=== PATIENT | female | born 1990 | race Caucasian/White ===

== ENCOUNTER → 2020-06-07 | Outpatient (CLI) | payer BC ==
[~2020-06-07] MED LIST: LEVOFLOXACIN500 MG PO; MEDROL DOSEPAK4 MG PO; MOTRIN600 MG PO; PROAIR HFA0.09 MG/AC IH; ZITHROMAX Z PA250 MG PO
== END | disposition home or self-care (01) ==
LOC: US 14:12
PROVIDERS: ATTEND Nurse Practitioner Women's Health
DX: N93.9 Abnormal uterine and vaginal bleeding, unspecified (principal)

== ENCOUNTER → 2022-03-12 | Outpatient (CLI) | payer BC | END | disposition home or self-care (01) | LOC: RAD 09:34 | PROVIDERS: ATTEND Nurse Practitioner | DX: M47.816 Spondylosis without myelopathy or radiculopathy, lumbar region (principal); M25.78 Osteophyte, vertebrae ==

== ENCOUNTER → 2022-11-05 | Outpatient (CLI) | payer BC | END | disposition home or self-care (01) | LOC: RAD 13:34 | PROVIDERS: ATTEND Nurse Practitioner | DX: M54.31 Sciatica, right side (principal); M54.59 Other low back pain; M25.551 Pain in right hip ==

== ENCOUNTER 2022-12-17 08:15 | Emergency (ER) | payer BC ==
[~2022-12-17] VITALS: Ht 165.1 cm; Wt 140.6 kg
[2022-12-17] MEDS ORDERED: OZEMPIC2 MG/0.71 SQ (08:25)
[2022-12-17] MEDS ORDERED: DULOXETINE HCL60 MG PO (08:26)
[2022-12-17] MEDS ORDERED: BUSPAR5 MG PO (08:26)
[2022-12-17] MEDS ORDERED: CYCLOBENZAPRINE10 MG PO (10:27)
[2022-12-17] MEDS ORDERED: PREDNISONE50 MG PO (10:27)
[2022-12-17] MEDS ORDERED: HYDROCODONE-AC1 EAC1 PO (10:27)
== END 2022-12-17 10:35 | disposition home or self-care (01) ==
LOC: ED 08:15
DX: M54.41 Lumbago with sciatica, right side (principal); M79.604 Pain in right leg; F32.A Depression, unspecified

== ENCOUNTER → 2022-12-26 | Outpatient (CLI) | payer BC ==
[~2022-12-26] MED LIST changes: +BUSPAR5 MG PO; +CYCLOBENZAPRINE10 MG PO; +DULOXETINE HCL60 MG PO; +HYDROCODONE-AC1 EAC1 PO; +OZEMPIC2 MG/0.71 SQ; +PREDNISONE50 MG PO
== END | disposition home or self-care (01) ==
LOC: MRI 10:39
PROVIDERS: ATTEND Nurse Practitioner
DX: M51.26 Other intervertebral disc displacement, lumbar region (principal); M48.061 Spinal stenosis, lumbar region without neurogenic claudication

== ENCOUNTER → 2024-03-25 | Outpatient (CLI) | payer BC ==
[2024-03-25 15:10] LABS: BASO % 0.2 % (0.0-1.0); EOS # 0.2 10*3/uL (0.0-0.4); HEMATOCRIT 44.1 % (37.0-47.0); MEAN CELL VOLUME 92.6 fl (81.0-99.0); MEAN CORPUSCULAR HGB 28.8 pg (27.0-31.0); MEAN CORPUSCULAR HGB CONC 31.1 g/dl (33.0-37.0); MEAN PLATELET VOLUME 9.2 fl (9.6-12.3); MONO # 0.6 10*3/uL (0.1-1.0); MONO % 6.3 % (3.0-9.0); NEUT # 5.9 10*3/uL (2.3-7.9); NEUT % 60.7 % (47.0-73.0); PLATELET COUNT AUTOMATED 263 10*3/uL (130-400); RED BLOOD COUNT 4.76 10*6/uL (4.10-5.10); RED CELL DISTRI WIDTH 12.9 % (0-14.5); WHITE BLOOD COUNT 9.7 10*3/uL (4.8-10.8)
[2024-03-25 15:58] LABS: ALKALINE PHOSPHATASE 73 U/L (46-116); BUN 11 mg/dl (9-23); CHLORIDE 104 mmol/L (98-107); CPK 304 U/L (34-171); FREE T4 1.07 ng/dl (0.89-1.76); POTASSIUM 3.9 mmol/L (3.4-5.1); SGPT/ALT 34 U/L (5-49); TOTAL PROTEIN 7.4 gm/dL (6.0-8.0); VITAMIN D, 25-HYDROXY 19.4 ng/mL (30-100)
== END | disposition home or self-care (01) ==
LOC: LAB 14:35
PROVIDERS: ATTEND Internal Medicine Rheumatology
DX: M25.562 Pain in left knee (principal); E55.9 Vitamin D deficiency, unspecified; M25.561 Pain in right knee; G89.29 Other chronic pain; M25.551 Pain in right hip; M25.552 Pain in left hip; R70.0 Elevated erythrocyte sedimentation rate

== ENCOUNTER → 2024-07-13 | Outpatient (CLI) | payer BC ==
[2024-07-14 13:07] LABS: CCP ANTIBODIES IGG/IGA 7 units (0-19)
[2024-07-14 16:08] LABS: A/G RATIO 1.1 (0.7-1.7); ALBUMIN 3.7 g/dL (2.9-4.4); ALPHA-1-GLOBULIN 0.3 g/dL (0.0-0.4); ALPHA-2-GLOBULIN 0.8 g/dL (0.4-1.0); BETA GLOBULIN 1.2 g/dL (0.7-1.3); GLOBULIN, TOTAL 3.3 g/dL (2.2-3.9)
== END | disposition home or self-care (01) ==
LOC: LAB 16:29
PROVIDERS: ATTEND Internal Medicine Rheumatology
DX: M25.561 Pain in right knee (principal); M25.562 Pain in left knee; G89.29 Other chronic pain; R70.0 Elevated erythrocyte sedimentation rate; E55.9 Vitamin D deficiency, unspecified; M79.7 Fibromyalgia

== ENCOUNTER 2025-01-28 13:28 | Emergency (ER) | payer BC ==
[~2025-01-28] VITALS: Ht 165.1 cm; Wt 136.1 kg
[2025-01-28] MEDS ORDERED: AMOX-CLAV 500-1 EACH PO (13:47)
[2025-01-28] MEDS ORDERED: MOUNJARO5 MG/0.51 SQ (13:47)
[2025-01-28] MEDS ORDERED: DICLOFENAC SOD75 MG PO (13:47)
[2025-01-28] MEDS ORDERED: SODIUM CHLORIDE 0.9% 1,000 ML IV ONE (14:20)
[2025-01-28] MEDS ORDERED: ACETAMINOPHEN 325 MG TAB PO ONE (14:20)
[2025-01-28 14:36] LABS: BASO # 0.0 10*3/uL (0.0-0.1); BASO % 0.3 % (0.0-1.0); EOS # 0.0 10*3/uL (0.0-0.4); EOS % 0.0 % (1.0-4.0); MEAN CELL VOLUME 90.2 fl (81.0-99.0); MEAN CORPUSCULAR HGB 28.8 pg (27.0-31.0); MEAN PLATELET VOLUME 9.3 fl (9.6-12.3); MONO # 0.3 10*3/uL (0.1-1.0); MONO % 7.9 % (3.0-9.0); NEUT # 2.9 10*3/uL (2.3-7.9); NEUT % 75.1 % (47.0-73.0); NUCLEATED RED BLOOD CELL 0.0 % (0.0-0.0); NUCLEATED RED BLOOD CELL 0.0 10*3/uL (0.0-0.0); PLATELET COUNT AUTOMATED 144 10*3/uL (130-400); RED CELL DISTRI WIDTH 12.7 % (0-14.5)
[2025-01-28 14:54] LABS: BUN 8 mg/dl (9-23)
[2025-01-28 15:18] LABS: BILIRUBIN Negative (Negative); BLOOD Negative (Negative); CLARITY Cloudy (Clear); COLOR Yellow (Yellow); KETONE Trace (Negative); LEUKO ESTERASE Trace (Negative); NITRITE Negative (Negative); PH 6.0 (4.5-8.0); SPECIFIC GRAVITY 1.025 (1.001-1.030); UROBILINOGEN 1.0 E.U./dl (0.0-1.0)
[2025-01-28 15:37] LABS: BACTERIA 1+; EPITHELIAL CELLS 21-30
[2025-01-28] MEDS ORDERED: VIBRAMYCIN100 MG PO (16:10)
== END 2025-01-28 16:25 | disposition home or self-care (01) ==
LOC: ED 13:28
PROVIDERS: Emergency Medicine
DX: S40.861A Insect bite (nonvenomous) of right upper arm, initial encounter (principal); R50.9 Fever, unspecified; H66.91 Otitis media, unspecified, right ear; F41.9 Anxiety disorder, unspecified; F32.A Depression, unspecified; E11.9 Type 2 diabetes mellitus without complications; G47.30 Sleep apnea, unspecified; Z20.822 Contact with and (suspected) exposure to COVID-19; W57.XXXA Bitten or stung by nonvenomous insect and other nonvenomous arthropods, initial encounter; Y93.89 Activity, other specified; Y92.89 Other specified places as the place of occurrence of the external cause; Y99.8 Other external cause status